=== PATIENT | female | born 1960 | race African-American/Black ===

== ENCOUNTER 2016-06-17 06:29 | Emergency (ER) | payer OTHER ==
[~2016-06-17] VITALS: Ht 160 cm; Wt 69.6 kg
[~2016-06-17 06:29] MED LIST: BIOT5000 PO; CHEL50TA PO; IRON325T2 PO; NEXI40CA PO; TAB-TAB PO; VITA100018 PO
[2016-06-17 06:33] VITALS: BP 114/84; PULSE 99; RESP 20; TEMP 99.6; O2SAT 96
[2016-06-17] MEDS ORDERED: AZIT250T3 PO (06:59)
[2016-06-17] MEDS ORDERED: TRAM50TA PO (06:59)
[2016-06-17] MEDS ORDERED: FERR325T PO (07:01)
[2016-06-17] MEDS ORDERED: NEXI40CA PO (07:01)
[2016-06-17] MEDS ORDERED: MULT-65 PO (07:01)
[2016-06-17] MEDS ORDERED: ONDANSETRON HCL 4 MG/2 ML VIAL IV PUSH ONE (07:15)
[2016-06-17] MEDS ORDERED: SODIUM CHLOR 0.9% 1000 ML INJ 1,000 ML IV ONE (07:15)
--- NOTE | 2016-06-17 07:16 | PD ---
HPI Chief Complaint: Cold / Flu Symptoms Time Seen by Provider: 07:04 Travel History International Travel<30 days: No Contact w/Intl Traveler<30days: No Traveled to known affect area: No History of Present Illness HPI 55 y/o female presents with nasal congestion, vomiting, diarrhea, body aches, frontal headache and general ill feeling for the past week. She went to her primary care physician on Wednesday and was prescribed azithromycin and tramadol to help get the infection out of her lungs she states. She states since then she has had more vomiting and diarrhea so she stopped taking the tramadol. She states she has multiple sick contacts with her family with similar symptoms. She denies getting the flu shot this year. She denies other specific complaints. She states that she had a fever last night and took Tylenol at 8 PM. She denies specific modifying factors other than movement. Quality is nasal congestion and GI upset. Duration one week. PFSH Past Medical History Anxiety: No Cancer: No Diabetes: Yes (BORDERLINE by records, patient denies) Patient Takes Glucophage: No Diminished Hearing: No Endocrine: No Genitourinary: No Immune Disorder: No Reproductive: No Migraines: Yes (prior records) Tetanus Vaccination: > 5 Years Influenza Vaccination: No ?: Not Menopausal: Yes Past Surgical History Abdominal Surgery: Yes (CARMEN N Y GASTRIC BYPASS SURGERY, INCISIONAL HERNIA REPAIR, CHOLECYSTECTOMY) Appendectomy: Yes Body Medical Devices: ROMÁN FROM CARMEN N Y Section: Yes (X 1) Cholecystectomy: Yes Gynecologic Surgery: Yes (C SECTION) Pacemaker: No Tonsillectomy: Yes Social History Alcohol Use: Yes (SOCIALLY) Tobacco Use: No Substance Use: No Allergies-Medications (Allergen,Severity, Reaction): Coded Allergies: Vancomycin (Verified Allergy, Severe, REDNESS AND ITCHING, 06/17/16) Reported Meds & Prescriptions Reported Meds & Active Scripts Active Phenergan (Promethazine HCl) 25 Mg Tab 25 Mg PO Q6H PRN Reported Multi-Vitamin Daily (Multiple Vitamin) 1 Tab Tab 1 Tab PO DAILY Ferrous Sulfate 325 Mg Tab 325 Mg PO DAILY Nexium (Esomeprazole DR) 40 Mg Capdr 40 Mg PO DAILY Tramadol (Tramadol HCl) 50 Mg Tab 50 Mg PO Q8H PRN Azithromycin 250 Mg Tab 250 Mg PO DAILY Review of Systems Except as stated in HPI: all other systems reviewed are Neg Physical Exam Narrative General: No apparent distress, well appearing ENT: mmm Neck: Neck is supple, no meningeal signs, trachea is midline Cardiovascular: Regular rate and rhythm Lungs: No increased respiratory effort noted, CTA bilaterally Abdomen: Soft, NT, ND, no rebound or guarding Extremities: No edema Neuro: Awake, motor and sensation grossly intact, normal speech Data Data Last Documented VS Vital Signs Date Time Temp Pulse Resp B/P Pulse Ox O2 Delivery O2 Flow Rate FiO2 06/17/16 07:37 96 Room Air 06/17/16 06:33 99.6 99 20 114/84 Orders Magnesium (Mg) (06/17/16 07:10) Phosphorus (Po4) (06/17/16 07:10) Complete Blood Count With Diff (06/17/16 07:10) Comprehensive Metabolic Panel (06/17/16 07:10) Urinalysis - C+S If Indicated (06/17/16 07:10) Chest, Pa & Lat (06/17/16 ) Iv Access Insert/Monitor (06/17/16 07:10) Ecg Monitoring (06/17/16 07:10) Oximetry (06/17/16 07:10) Influenzae A/B Antigen (06/17/16 07:10) Sodium Chlor 0.9% 1000 Ml Inj (Ns 1000 M (06/17/16 07:15) Ondansetron Inj (Zofran Inj) (06/17/16 07:15) Ketorolac Inj (Toradol Inj) (06/17/16 07:30) Labs Laboratory Tests Test 06/17/16 06/17/16 07:10 07:15 White Blood Count 6.4 TH/MM3 Red Blood Count 4.10 MIL/MM3 Hemoglobin 12.2 GM/DL Hematocrit 37.5 % Mean Corpuscular Volume 91.3 FL Mean Corpuscular Hemoglobin 29.7 PG Mean Corpuscular Hemoglobin 32.5 % Concent Red Cell Distribution Width 13.9 % Platelet Count 207 TH/MM3 Mean Platelet Volume 7.6 FL Neutrophils (%) (Auto) 63.3 % Lymphocytes (%) (Auto) 22.8 % Monocytes (%) (Auto) 13.2 % Eosinophils (%) (Auto) 0.5 % Basophils (%) (Auto) 0.2 % Neutrophils # (Auto) 4.1 TH/MM3 Lymphocytes # (Auto) 1.5 TH/MM3 Monocytes # (Auto) 0.8 TH/MM3 Eosinophils # (Auto) 0.0 TH/MM3 Basophils # (Auto) 0.0 TH/MM3 CBC Comment DIFF FINAL Differential Comment Sodium Level 139 MEQ/L Potassium Level 3.8 MEQ/L Chloride Level 102 MEQ/L Carbon Dioxide Level 27.8 MEQ/L Anion Gap 9 MEQ/L Blood Urea Nitrogen 11 MG/DL Creatinine 1.00 MG/DL Estimat Glomerular Filtration 70 ML/MIN Rate Random Glucose 90 MG/DL Calcium Level 8.7 MG/DL Phosphorus Level 3.2 MG/DL Magnesium Level 2.1 MG/DL Total Bilirubin 0.8 MG/DL Aspartate Amino Transf 29 U/L (AST/SGOT) Alanine Aminotransferase 23 U/L (ALT/SGPT) Alkaline Phosphatase 53 U/L Total Protein 8.3 GM/DL Albumin 3.6 GM/DL Urine Collection Type CLEAN CATCH Urine Color YELLOW Urine Turbidity CLEAR Urine pH 5.5 Urine Specific Louise 1.023 Urine Protein 30 mg/dL Urine Glucose (UA) NEG mg/dL Urine Ketones 15 mg/dL Urine Occult Blood SMALL Urine Nitrite NEG Urine Bilirubin NEG Urine Leukocyte Esterase NEG Urine RBC 0-3 /hpf Urine WBC 0-2 /hpf Urine Squamous Epithelial 0-5 /hpf Cells Urine Bacteria OCC /hpf Urine Mucus FEW /lpf Microscopic Urinalysis Comment CULT NOT INDICATED Urine Collection Time 07:15 [facility] Medical Decision Making Medical Screen Exam Complete: Yes Emergency Medical Condition: Yes Medical Record Reviewed: Yes (past history confirmed) Interpretation(s) CBC & BMP Diagram 06/17/16 07:10 influ A Last 24 hours Impressions Chest X-Ray 06/17/16 0000 Signed Impressions: Service Date/Time: Friday, June 17, 2016 07:12 - CONCLUSION: No acute disease. Jeremiah Mejia MD Differential Diagnosis Pneumonia, URI, gastroenteritis, dehydration, electrolyte abnormality, tension, migraine Narrative Course Will check blood work, urinalysis, influenza, chest x-ray and dose with IV fluids, Zofran, toradol and reevaluate ed workup with flu A, Patient denies any new complaints and states that they are feeling better. no emesis here, Patient happy with care, all questions answered. Patient knows that follow up is incumbent on them and to return to the emergency room immediately if new or worsening symptoms develop. Patient given strict return precautions, vitals reviewed and are normal, agrees to further workup as an outpatient. Diagnosis Primary Impression: Influenza A Patient Instructions: General Instructions Additional Instructions: phenergan as needed, keep hydrated, follow with primary this week for recheck Med/Other Pt SpecificInfo: Prescription(s) given Scripts Promethazine (Phenergan)25 Mg Tab25 Mg PO Q6H PRN (NAUSEA OR VOMITING) #15 TAB Prov:Leigh Corrales MD 06/17/16 Disposition: 01 DISCHARGE HOME Condition: Stable Leigh Corrales MD Jun 17, 2016 07:16
[2016-06-17 07:28] LABS: BLOOD, URINE SMALL (NEG); GLUCOSE,URINE NEG (NEG); KETONE, URINE 15 mg/dL (NEG); NITRITE,URINE NEG (NEG); PH, URINE 5.5 (5.0-8.5)
[2016-06-17] MEDS ORDERED: KETOROLAC TROMETHAMINE 30 MG/ML (IVP) VIAL IV PUSH ONE (07:30)
[2016-06-17 07:33] LABS: AUTOMATED NEUTROPHIL # 4.1 TH/MM3 (1.8-7.7); BASOPHIL % 0.2 % (0.0-2.0); EOSINOPHIL % 0.5 % (0.0-4.0); HEMATOCRIT 37.5 % (35.0-46.0); HEMO FLAGS DIFF FINAL; LYMPH % 22.8 % (9.0-44.0); LYMPHOCYTE # 1.5 TH/MM3 (1.0-4.8); MEAN CELL VOLUME 91.3 FL (80.0-100.0); MEAN CORPUSCULAR HEMOGLOBIN 29.7 PG (27.0-34.0); MEAN CORPUSCULAR HGB CONC 32.5 % (32.0-36.0); MONO % 13.2 % (0.0-8.0); NEUT % 63.3 % (16.0-70.0); PLATELET COUNT 207 TH/MM3 (150-450); RED CELL DISTRIBUTION WIDTH 13.9 % (11.6-17.2); WHITE BLOOD COUNT 6.4 TH/MM3 (4.0-11.0)
[2016-06-17 07:35] LABS: CHLORIDE 102 MEQ/L (98-107); POTASSIUM 3.8 MEQ/L (3.5-5.1); SODIUM (NA) 139 MEQ/L (136-145)
[2016-06-17 07:37] VITALS: O2SAT 96
[2016-06-17 07:39] LABS: ANION GAP 9 MEQ/L (5-15); BICARBONATE 27.8 MEQ/L (21.0-32.0); BLOOD UREA NITROGEN 11 MG/DL (7-18); MAGNESIUM 2.1 MG/DL (1.5-2.5)
[2016-06-17 07:42] LABS: ALT (GPT) 23 U/L (10-53); AST (GOT) 29 U/L (15-37); GLOMERULAR FILTRATION RATE 70 ML/MIN (>89)
[2016-06-17 07:44] LABS: TOTAL BILIRUBIN ADULT 0.8 MG/DL (0.2-1.0)
[2016-06-17 07:45] LABS: ALKALINE PHOSPHATASE 53 U/L (45-117)
[2016-06-17 07:45] LABS: METHOD OF COLLECTION CLEAN CATCH; URINE COLOR YELLOW (YELLW/STRAW)
[2016-06-17 07:54] LABS: MUCUS URINE FEW /lpf (OCC); RBC, URINE 0-3 /hpf (0-3); WBC, URINE 0-2 /hpf (0-5)
[2016-06-17 07:55] LABS: BACTERIA, URINE OCC /hpf; COMMENT (UR) CULT NOT INDICATED; CULTURE IF INDICATED CULT NOT INDICATED; SQUAMOUS EPITHELIAL CELL URINE 0-5 /hpf (0-5)
--- NOTE | 2016-06-17 08:14 | RADHPO ---
EXAM DATE/TIME: 06/17/2016 07:12 [facility] COMPARISON: No previous studies available for comparison. INDICATIONS : Chest pains with a cough. MEDICAL HISTORY : None. SURGICAL HISTORY : None. ENCOUNTER: Initial ACUITY: 2 weeks PAIN SCORE: 7/10 LOCATION: Bilateral upper chest FINDINGS: PA and lateral views of the chest demonstrate the lungs to be symmetrically aerated without evidence of mass, infiltrate or effusion. The cardiomediastinal contours are unremarkable. Osseous structure s are intact. CONCLUSION: No acute disease. Jeremiah Mejia MD on June 17, 2016 at 8:12 Board Certified Radiologist. This report was verified electronically.
[2016-06-17] MEDS ORDERED: PROM25TA5 PO (08:18)
== END 2016-06-17 08:48 | disposition home or self-care (01) ==
LOC: PHED 06:29
DX: J09.X2 Influenza due to identified novel influenza A virus with other respiratory manifestations (principal)
CPT/HCPCS: 71020; 80053; 81001; 83735; 84100; 85025; 87804; 96361; 96374; 96375; 99284; J1885; J2405; J7030